=== PATIENT | male | born 1985 | race Caucasian/White ===

== ENCOUNTER 2020-10-15 19:17 | Emergency (ER) | payer SELFPAY ==
[2020-10-15 20:20] VITALS: BP 116/84
== END 2020-10-15 20:20 | disposition home or self-care (01) ==
LOC: ED 19:17
DX: S61.215A Laceration without foreign body of left ring finger without damage to nail, initial encounter (principal); W26.8XXA Contact with other sharp object(s), not elsewhere classified, initial encounter; Y92.009 Unspecified place in unspecified non-institutional (private) residence as the place of occurrence of the external cause